=== PATIENT | male | born 1990 | race Two or more races ===

== ENCOUNTER 2016-10-25 20:08 | Emergency (ER) | payer MEDICAID ==
--- NOTE | 2016-10-25 20:49 | EDPHY ---
H & P Time Seen by Provider: 10/25/16 20:32 HPI/ROS: HPI Rib pain. 26-year-old male. On foot. Homeless. Reports that he fell 2-3 months ago. He could not give me further details on how he fell. He denies assault. He denies any acute trauma. He reports he has been bothered by right anterior lower rib pain and left posterior lower rib pain. He reports the pain is worse when he takes a deep breath in. No fever. No cough. No gross hematuria. No other complaints. ROS: Constitutional: No fever, no chills. No weakness. Eyes: No discharge. No changes in vision. ENT: No sore throat. No nasal congestion or rhinorrhea. Respiratory: No cough. No shortness of breath. Cardiac: No chest pain, no palpitations. Gastrointestinal: No abdominal pain, no vomiting, no diarrhea. Genitourinary: No hematuria. No dysuria or increased frequency with urination. Musculoskeletal: No back pain. No neck pain. As above. Denies extremity pain. Skin: No rashes. Neurological: No headache. No focal weakness or altered sensation. Past medical history: Denies any past medical history. Social history: Smoker. Homeless. History of substance abuse. Physical Exam: General Appearance: Alert, no distress. Dirty, disheveled. This patient is responding to questions appropriately and in full sentences. This patient appears well-hydrated and well-nourished. Head: Normocephalic atraumatic. Face: Facial bones are stable on palpation. Eyes: Pupils equal and round and reactive to light, no pallor or injection. No lid erythema or edema. Respiratory: There are no retractions, lungs are clear to auscultation with good air movement bilaterally. Chest wall is stable to AP and lateral palpation. Vague tenderness, right anterior lower rib area mid clavicular line. No soft tissue changes. No ecchymosis, edema, bony step-off or crepitus noted on palpation of this area. Left posterior lower medial rib area tenderness on palpation. Again no soft tissue changes as prior noted. Cardiovascular: Regular rate and rhythm. No murmur. Gastrointestinal: Abdomen is soft and nontender, no masses, bowel sounds normal. Neurological: Motor sensory function is intact. Cranial nerves are normal. Cerebellar function intact. Skin: Warm and dry, no rashes. No lacerations, abrasions or contusions. Musculoskeletal: Neck is supple and nontender. The trachea is midline. No midline cervical, thoracic, lumbar or sacral tenderness on palpation. No flank tenderness on palpation. Extremities are symmetrical, full range of motion. All joints in the bilateral upper and bilateral lower extremities range without pain or impingement. No tenderness on palpation of the long bones in the bilateral upper and bilateral lower extremities. Psychiatric: No agitation. No depression. Database: EKG: Imaging: Right-sided rib series x-ray PA and lateral chest x-ray: Procedures: Emergency department course: After my evaluation, patient was sent for imaging. His vital signs have been reviewed and are normal. I have reviewed the patient's previous medical records. He has been seen 2 times in the past for this identical complaint in March of 2016. Imaging at that time was negative. History at the time related rib pain both anterior and posterior to a fall he sustained 5 weeks prior to being seen in the emergency department. 9:15 p.m., patient re-evaluated. Resting comfortably at this time. I discussed the results of his x-rays with him. I feel he is safe for discharge. I feel that a significant acute traumatic injury is unlikely. I discussed ibuprofen dosing with him follow[facility] was reviewed. All of his questions were answered. He was discharged in good condition. Differential Diagnosis: The differential diagnosis on this patient includes but is not limited to rib fractures, chest wall contusion. Pneumonia, pulmonary embolism, other significant traumatic injury unlikely. This represents a partial list of diagnoses considered. These considerations are based on history, physical exam , past history, reassessment and diagnostic testing. Smoking Status: Current every day smoker Constitutional: Initial Vital Signs Temperature (C) 37.2 C 10/25/16 20:22 Heart Rate 88 10/25/16 20:22 Respiratory Rate 18 10/25/16 20:22 Blood Pressure 117/75 10/25/16 20:22 O2 Sat (%) 93 10/25/16 20:22 O2 Delivery Mode Room Air Allergies/Adverse Reactions: No Known Allergies Allergy (Verified 05/10/16 15:46) Home Medications: Medication Instructions Recorded NK [No Known Home Meds] 05/10/16 Departure - Departure Disposition: Home, Routine, Self-Care Clinical Impression: Rib pain Condition: Good Instructions: Rib Fracture (ED) Additional Instructions: Read and follow provided instructions. Follow-up with your primary care physician at [facility] in 1-2 days for re -evaluation. Ibuprofen dosin mg every 6 hours with meals for the next 3 days only. Return to the emergency department for worsening pain, difficulty breathing or other serious concerns. Referrals: [facility],. [Clinic] - As per Instructions
[2016-10-25] MEDS ORDERED: IBUPROFEN 600 MG TAB PO ONE (21:04)
[2016-10-25 21:32] VITALS: BP 113/71; PULSE 70; RESP 16; TEMP 97.9; O2SAT 97
== END 2016-10-25 21:30 | disposition home or self-care (01) ==
DX: R07.81 Pleurodynia (principal); F17.200 Nicotine dependence, unspecified, uncomplicated

== ENCOUNTER 2016-12-08 15:58 | Emergency (ER) | payer MEDICAID ==
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
[2016-12-08 16:24] LABS: % IMMATURE GRANULYOCYTES 0.2 % (0.0-1.1); ABSOLUTE IMMATURE GRANULOCYTES 0.01 10^3/uL (0.00-0.10); ADD DIFF? NO; ADD MORPH? NO; ADD SCAN? NO; ATYPICAL LYMPHOCYTE FLAG 10 (0-99); FRAGMENT RBC FLAG 0 (0-99); HEMATOCRIT 49.4 % (40.0-51.0); HEMOGLOBIN 17.4 g/dL (13.7-17.5); LEFT SHIFT FLG 0 (0-99); LIPEMIA HEMOLYSIS FLAG 90 (0-99); MEAN CELL HEMOGLOBIN 30.8 pg (27.9-34.1); MEAN CELL HEMOGLOBIN CONCENTR. 35.2 g/dL (32.4-36.7); MEAN CELL VOLUME 87.4 fL (81.5-99.8); MEAN PLATELET VOLUME 9.8 fL (8.7-11.7); PLATELET CLUMPS FLAG 20 (0-99); PLATELET COUNT 257 10^3/uL (150-400); RED BLOOD CELL COUNT 5.65 10^6/uL (4.40-6.38); RED CELL DISTRIBUTION WIDTH 12.6 % (11.5-15.2)
[2016-12-08 16:29] VITALS: RESP 16
[2016-12-08 16:37] LABS: ANION GAP 14 mEq/L (8-16); CALCIUM 10.3 mg/dL (8.5-10.4); CARBON DIOXIDE 25 mEq/l (22-31); CHLORIDE 103 mEq/L (97-110); ETHANOL SERUM < 10 mg/dL (0-10); GLOMERULAR FILTRATION RATE > 60; GLUCOSE 86 mg/dL (70-100); POTASSIUM 4.5 mEq/L (3.5-5.2); SODIUM 142 mEq/L (134-144)
[2016-12-08 19:04] VITALS: BP 131/77; PULSE 66; TEMP 97.9; O2SAT 96
== END 2016-12-08 19:03 | disposition home or self-care (01) ==
LOC: EEVIPCON 15:58
DX: F23 Brief psychotic disorder (principal); F17.200 Nicotine dependence, unspecified, uncomplicated
CPT/HCPCS: 80305; G0480

== ENCOUNTER 2018-01-20 16:45 | Emergency (ER) | payer OTHER, MEDICAID ==
--- NOTE | 2018-01-20 18:13 | EDPHY ---
H & P Time Seen by Provider: 01/20/18 17:39 HPI/ROS: HPI Rib pain. 27-year-old male on foot. This patient is homeless. I have seen him in the emergency department myself for the same complaint he presents with today back in October of 2016. He complains of rib pain. He describes this on both sides of his chest wall. He states that he has a history of broken ribs. He denies any recent trauma. No fever. No cough. No difficulty breathing. No other complaints. ROS: Constitutional: No fever, no chills. No weakness. Eyes: No discharge. No changes in vision. ENT: No sore throat. No nasal congestion or rhinorrhea. Respiratory: No cough. No shortness of breath. As above. Cardiac: No chest pain, no palpitations. Gastrointestinal: No abdominal pain, no vomiting, no diarrhea. Genitourinary: No hematuria. No dysuria or increased frequency with urination. Musculoskeletal: No back pain. No neck pain. No myalgias or arthralgias. Skin: No rashes. Neurological: No headache. No focal weakness or altered sensation. Past medical history: He denies any past medical history. As above. Social history: Denies IV drugs and street drugs. Recently incarcerated. Denies alcohol. Here by himself. Physical Exam: General Appearance: Alert, no distress. Somewhat disheveled and dirty in appearance. This patient is responding to questions appropriately and in full sentences. This patient appears well-hydrated and well-nourished. Eyes: Pupils equal and round no pallor or injection. No lid edema, erythema or injection. Respiratory: There are no retractions, lungs are clear to auscultation with good air movement bilaterally. No pain on AP and lateral compression of the chest wall. No gross evidence of traumatic injury on inspection of his thorax. Cardiovascular: Regular rate and rhythm. No murmur. Gastrointestinal: Abdomen is soft and nontender, no masses, bowel sounds normal. No focal tenderness at McBurney's point. No León sign. Neurological: Motor sensory function is grossly intact. Cranial nerves are normal. Gait is normal. Skin: Warm and dry, no rashes. Musculoskeletal: Neck is supple and nontender. Extremities are symmetrical. All joints range without pain or impingement. Psychiatric: No agitation. No depression. Database: EKG: Imaging: Procedures: Emergency department course: Vital signs reviewed and are normal. The patient is afebrile. No clinical evidence of chest wall injury, rib fracture or other significant pathology on exam. This is similar to his previous presentation when I saw him in October of 2016. I feel he is safe for discharge. Follow-up and return to emergency department precautions reviewed with him. All of his questions were answered. He was discharged in good condition. Differential Diagnosis: The differential diagnosis on this patient includes but is not limited to costal chondritis. Rib fractures, zoster, pyelonephritis, pancreatitis, cholecystitis, appendicitis, other surgical etiology, other traumatic etiology unlikely. This represents a partial list of diagnoses considered. These considerations are based on history, physical exam, past history, reassessment and diagnostic testing. Smoking Status: Current every day smoker Constitutional: Initial Vital Signs Temperature (C) 36.7 C 01/20/18 16:48 Heart Rate 95 01/20/18 16:48 Respiratory Rate 18 01/20/18 16:48 Blood Pressure 104/55 L 01/20/18 16:48 O2 Sat (%) 94 01/20/18 16:48 Allergies/Adverse Reactions: No Known Allergies Allergy (Verified 01/20/18 16:47) Home Medications: Medication Instructions Recorded NK [No Known Home Meds] 05/10/16 Departure - Departure Disposition: Home, Routine, Self-Care Clinical Impression: Rib pain Condition: Good Instructions: Acute Abdominal Pain (ED) Additional Instructions: Ibuprofen dosin mg every 6 hours with meals for the next 3 days only. Take only as needed for pain. Read and follow provided instructions. Follow-up with your primary care physician at [facility] this week for re- evaluation as discussed. Return to the emergency department for worsening symptoms or other serious concerns. Referrals: [facility],. [Clinic] - As per Instructions
[2018-01-20 18:24] VITALS: BP 105/80
== END 2018-01-20 18:24 | disposition home or self-care (01) ==
DX: R07.81 Pleurodynia (principal); Z59.0 Homelessness